=== PATIENT | male | born 1950 | race Caucasian/White ===

== ENCOUNTER 2017-09-15 13:06 | Emergency (ER) | payer BC ==
[2017-09-15 14:55] VITALS: BP 173/83; RESP 22; TEMP 98.2
[2017-09-15] MEDS ORDERED: KETOROLAC 30 MG/ML 1 ML VIAL IVP STA (15:30)
[2017-09-15] MEDS ORDERED: IPRATROPIUM-ALBUTEROL 3 ML NEB INHALATION STA (15:30)
[2017-09-15] MEDS ORDERED: methylPREDNISolone SOD SUCCI 125 MG/2 ML VIAL IV ONE (15:30)
--- NOTE | 2017-09-15 15:34 | ED ---
SOB HPI - General Chief Complaint: Shortness of Breath Stated Complaint: cough Time Seen by Provider: 09/15/17 15:20 Source: patient Mode of arrival: ambulatory Limitations: no limitations - History of Present Illness Initial Comments: Patient with history of COPD, current smoker, presents for cough for the past 5 days. States yellow and white sputum. Admits to subjective fevers, rhinorrhea and nasal congestion, mild body aches. Patient states he has pain in his chest only when coughing, no pain at rest. Denies nausea, vomiting, diarrhea, abdominal pain. Denies lower extremity pain or edema. Patient states he took Tylenol at home without relief. MD Complaint: cough - Related Data Home Medications Medication Instructions Recorded Confirmed Acetaminophen [Tylenol Extra 1,000 mg PO BID PRN 09/15/17 09/15/17 Strength] Previous Rx's Medication Instructions Recorded Albuterol Inhaler [Ventolin Hfa 1 - 2 puff INHALATION Q4HR PRN #1 09/15/17 Inhaler] inhaler Doxycycline [Vibramycin] 100 mg PO Q12HR 5 Days #20 capsule 09/15/17 predniSONE 40 mg PO DAILY 5 Days #10 tab 09/15/17 Allergies Allergy/AdvReac Type Severity Reaction Status Date / Time No Known Allergies Allergy Verified 09/15/17 15:40 Review of Systems ROS Statement: Those systems with pertinent positive or pertinent negative responses have been documented in the HPI. ROS Other: All systems not noted in ROS Statement are negative. Constitutional: Reports: fever (Subjective). Denies: chills, weakness Eyes: Denies: eye pain, vision change ENT: Reports: congestion, other (Rhinorrhea). Denies: ear pain, throat pain Respiratory: Reports: cough, dyspnea, wheezes. Denies: hemoptysis, stridor Cardiovascular: Reports: chest pain (Only when coughing), dyspnea on exertion. Denies: palpitations, orthopnea, syncope Endocrine: Reports: fatigue Gastrointestinal: Denies: abdominal pain, nausea, vomiting, diarrhea, constipation Genitourinary: Denies: urgency, dysuria, frequency, hematuria Musculoskeletal: Reports: myalgia. Denies: back pain, joint swelling Skin: Denies: rash, lesions, change in color Neurological: Denies: headache, confusion Past Medical History Past Medical History: COPD, GERD/Reflux, Hypertension, Liver Disease Additional Past Medical History / Comment(s): 12/26/16 Pt is a direct admit with diagnosis of chest pain. 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 Past Anesthesia/Blood Transfusion Reactions: No Reported Reaction Past Psychological History: No Psychological Hx Reported Smoking Status: Current some day smoker Past Alcohol Use History: Occasional Past Drug Use History: None Reported - Past Family History Father Family Medical History: Myocardial Infarction ([place]) Additional Family Medical History / Comment(s): Father in his 50's of an [place]. Mother Family Medical History: No Reported History Additional Family Medical History / Comment(s): Mother is . Pt reports she was a healthy person. General Exam - General Exam Comments Initial Comments: Sitting up on side of bed, conversing normally, calm, pleasant, mildly ill- appearing. Well-groomed well-dressed. Limitations: no limitations General appearance: alert, in no apparent distress Head exam: Present: atraumatic, normocephalic Eye exam: Present: normal appearance, PERRL, EOMI. Absent: scleral icterus, conjunctival injection ENT exam: Present: normal exam, normal oropharynx, mucous membranes moist Neck exam: Present: normal inspection, full ROM. Absent: meningismus Respiratory exam: Present: wheezes. Absent: respiratory distress, rales, rhonchi, stridor, accessory muscle use, decreased breath sounds Cardiovascular Exam: Present: normal rhythm, tachycardia GI/Abdominal exam: Present: soft. Absent: distended, tenderness, guarding, rebound Extremities exam: Present: normal inspection. Absent: tenderness, pedal edema, joint swelling, calf tenderness Neurological exam: Present: alert, oriented X3 Psychiatric exam: Present: normal affect, normal mood Skin exam: Present: warm, dry, intact, normal color. Absent: rash, cyanosis, diaphoretic, erythema Course Vital Signs 09/15/17 09/15/17 09/15/17 14:52 16:12 16:34 Temperature 98.2 F Pulse Rate 115 H 88 86 Respiratory 22 Rate Blood Pressure 173/83 O2 Sat by Pulse 97 Oximetry Medical Decision Making - Medical Decision Making Numerous labs place while patient was in triage prior to being seen by physician. Some labs canceled after being evaluated by physician. Chest x-ray shows no acute process Heart rate improved to 86 following IV fluids No significant lab abnormalities Symptoms likely secondary to bronchitis. We'll give prednisone, albuterol inhaler, doxycycline for treatment of bronchitis vs COPD exacerabtion. Patient counseled to stop smoking. Patient to follow primary care physician. Return to ER if new or worsening symptoms. - Lab Data Result diagrams: 09/15/17 15:47 09/15/17 15:47 Lab Results 09/15/17 09/15/17 09/15/17 Range/Units 15:47 15:47 15:47 WBC 9.0 (3.8-10.6) k/uL RBC 4.68 (4.30-5.90) m/uL Hgb 14.4 (13.0-17.5) gm/dL Hct 42.4 (39.0-53.0) % MCV 90.4 (80.0-100.0) fL MCH 30.7 (25.0-35.0) pg MCHC 34.0 (31.0-37.0) g/dL RDW 12.9 (11.5-15.5) % Plt Count 229 (150-450) k/uL Neutrophils % 72 % Lymphocytes % 14 % Monocytes % 9 % Eosinophils % 2 % Basophils % 1 % Neutrophils # 6.5 (1.3-7.7) k/uL Lymphocytes # 1.3 (1.0-4.8) k/uL Monocytes # 0.8 (0-1.0) k/uL Eosinophils # 0.2 (0-0.7) k/uL Basophils # 0.0 (0-0.2) k/uL Sodium 140 (137-145) mmol/L Potassium 4.5 (3.5-5.1) mmol/L Chloride 102 (98-107) mmol/L Carbon Dioxide 21 L (22-30) mmol/L Anion Gap 17 mmol/L BUN 14 (9-20) mg/dL Creatinine 0.97 (0.66-1.25) mg/dL Est GFR (CKD-EPI)AfAm >90 (>60 ml/min/1.73 sqM) Est GFR (CKD-EPI)NonAf 82 (>60 ml/min/1.73 sqM) Glucose 107 H (74-99) mg/dL Calcium 9.8 (8.4-10.2) mg/dL Total Bilirubin 0.7 (0.2-1.3) mg/dL AST 26 (17-59) U/L ALT 33 (21-72) U/L Alkaline Phosphatase 72 (38-126) U/L NT-Pro-B Natriuret Pep 1250 pg/mL Total Protein 8.2 (6.3-8.2) g/dL Albumin 4.7 (3.5-5.0) g/dL Influenza Type A RNA (Not Detectd) Influenza Type B (PCR) (Not Detectd) 09/15/17 Range/Units 15:47 WBC (3.8-10.6) k/uL RBC (4.30-5.90) m/uL Hgb (13.0-17.5) gm/dL Hct (39.0-53.0) % MCV (80.0-100.0) fL MCH (25.0-35.0) pg MCHC (31.0-37.0) g/dL RDW (11.5-15.5) % Plt Count (150-450) k/uL Neutrophils % % Lymphocytes % % Monocytes % % Eosinophils % % Basophils % % Neutrophils # (1.3-7.7) k/uL Lymphocytes # (1.0-4.8) k/uL Monocytes # (0-1.0) k/uL Eosinophils # (0-0.7) k/uL Basophils # (0-0.2) k/uL Sodium (137-145) mmol/L Potassium (3.5-5.1) mmol/L Chloride (98-107) mmol/L Carbon Dioxide (22-30) mmol/L Anion Gap mmol/L BUN (9-20) mg/dL Creatinine (0.66-1.25) mg/dL Est GFR (CKD-EPI)AfAm (>60 ml/min/1.73 sqM) Est GFR (CKD-EPI)NonAf (>60 ml/min/1.73 sqM) Glucose (74-99) mg/dL Calcium (8.4-10.2) mg/dL Total Bilirubin (0.2-1.3) mg/dL AST (17-59) U/L ALT (21-72) U/L Alkaline Phosphatase (38-126) U/L NT-Pro-B Natriuret Pep pg/mL Total Protein (6.3-8.2) g/dL Albumin (3.5-5.0) g/dL Influenza Type A RNA Not Detected (Not Detectd) Influenza Type B (PCR) Not Detected (Not Detectd) Disposition Clinical Impression: Bronchitis Disposition: HOME SELF-CARE Condition: Good Instructions: Acute Bronchitis (ED) Additional Instructions: Follow-up with your primary care physician. Return to ER for new or worsening symptoms. Prescriptions: Albuterol Inhaler [Ventolin Hfa Inhaler] 1 - 2 puff INHALATION Q4HR PRN #1 inhaler PRN Reason: Shortness Of Breath Doxycycline [Vibramycin] 100 mg PO Q12HR 5 Days #20 capsule predniSONE 40 mg PO DAILY 5 Days #10 tab Is patient prescribed a controlled substance at discharge?: No Referrals: Alden Pruett MD [Primary Care Provider] - 1-2 days
[2017-09-15 16:07] LABS: ALT 33 U/L (21-72); AST 26 U/L (17-59); Albumin 4.7 g/dL (3.5-5.0); Alkaline Phosphatase 72 U/L (38-126); Anion Gap 17 mmol/L; Blood Urea Nitrogen 14 mg/dL (9-20); Calcium 9.8 mg/dL (8.4-10.2); Carbon Dioxide 21 mmol/L (22-30); Chloride 102 mmol/L (98-107); Glucose 107 mg/dL (74-99); Potassium 4.5 mmol/L (3.5-5.1); Sodium 140 mmol/L (137-145); Total Bilirubin 0.7 mg/dL (0.2-1.3); Total Protein 8.2 g/dL (6.3-8.2)
[2017-09-15 16:09] LABS: Basophils % (A) 1 %; Eosinophils # (A) 0.2 k/uL (0-0.7); Eosinophils % (A) 2 %; HCT 42.4 % (39.0-53.0); HGB 14.4 gm/dL (13.0-17.5); Lymphocytes # (A) 1.3 k/uL (1.0-4.8); Lymphocytes % (A) 14 %; MCH 30.7 pg (25.0-35.0); MCV 90.4 fL (80.0-100.0); Mean Platelet Volume 7.7; Monocytes # (A) 0.8 k/uL (0-1.0); Monocytes % (A) 9 %; Neutrophils # (A) 6.5 k/uL (1.3-7.7); Neutrophils % (A) 72 %; Platelet Count 229 k/uL (150-450); RBC 4.68 m/uL (4.30-5.90); RDW 12.9 % (11.5-15.5)
[2017-09-15 16:39] VITALS: PULSE 86
--- NOTE | 2017-09-15 17:13 | XR ---
EXAMINATION: XR chest 2V DATE AND TIME: 09/15/2017 5:02 PM ORDERING PROVIDER: Pancho George CLINICAL INDICATION: difficulty breathing TECHNIQUE: PA and lateral COMPARISON: 12/26/2014 DESCRIPTION: The overlying soft tissues are prominent. The lungs are clear. The pleural spaces are negative. The cardiac silhouette is not enlarged. The mediastinal and pleural silhouettes are unremarkable. The skeletal structures are intact without focal findings. Changes of DISH are redemonstrated (diffus e idiopathic skeletal hyperostosis). IMPRESSION: NO ACUTE PROCESS.
== END 2017-09-15 17:37 | disposition home or self-care (01) ==
LOC: EC 13:06
DX: J40 Bronchitis, not specified as acute or chronic (principal); M79.1 Myalgia; F17.200 Nicotine dependence, unspecified, uncomplicated; R00.0 Tachycardia, unspecified; Z71.6 Tobacco abuse counseling
CPT/HCPCS: 36415; 94640; 83880; 80053; 85025; 87502; 71046; 99285; 96374; 96375; J2930; J1885